=== PATIENT | female | born 1965 | race Caucasian/White ===

== ENCOUNTER 2018-08-03 07:53 | Day surgery (SDC) | payer OTHER ==
[~2018-08-03 07:53] MED LIST: PROPOFOL 500 MG/50 ML EMU IV ONE
[2018-08-03 09:46] VITALS: O2SAT 95
[2018-08-03 10:13] VITALS: BP 143/81; PULSE 71; RESP 18; TEMP 97.3
== END 2018-08-03 10:45 | disposition home or self-care (01) | DRG 951 ==
LOC: SURG 07:53
PROVIDERS: ATTEND Surgery
DX: Z12.11 Encounter for screening for malignant neoplasm of colon (principal); K57.32 Diverticulitis of large intestine without perforation or abscess without bleeding; E11.9 Type 2 diabetes mellitus without complications; Z80.0 Family history of malignant neoplasm of digestive organs; K63.5 Polyp of colon
CPT/HCPCS: 99001; J2704